=== PATIENT | male | born 1990 | race Caucasian/White ===

== ENCOUNTER 2016-05-26 15:57 | Emergency (ER) | payer SELFPAY ==
[2016-05-26] MEDS ORDERED: HYDROcod/ACETAM 5/325 MG TABLET PO STA (16:09)
[2016-05-26] MEDS ORDERED: TETANUS/DIPHTHERIA/PERTUSSIS 0.5 ML SYRINGE IM ONE ×2 (16:09→16:12)
[2016-05-26] MEDS ORDERED: HYDROcod/ACETAM 5/325 MG TABLET ONE (16:11)
== END 2016-05-26 17:10 | disposition home or self-care (01) ==
DX: S06.0X1A Concussion with loss of consciousness of 30 minutes or less, initial encounter (principal); M54.2 Cervicalgia; M25.551 Pain in right hip; S00.03XA Contusion of scalp, initial encounter; S00.01XA Abrasion of scalp, initial encounter; S60.512A Abrasion of left hand, initial encounter; V28.2XXA Unspecified motorcycle rider injured in noncollision transport accident in nontraffic accident, initial encounter; Z23 Encounter for immunization; R03.0 Elevated blood-pressure reading, without diagnosis of hypertension
CPT/HCPCS: 70450; 72125; 90471; 90715; 99283; 99284; A9270

== ENCOUNTER 2018-01-25 12:20 | Emergency (ER) | payer OTHER ==
--- NOTE | 2018-01-25 12:34 | ED Physician Documentation ---
PD HPI HEENT - Stated complaint Stated Complaint: THROAT PX - History obtained from History obtained from: Patient, Other (translation pad) - History of Present Illness Timing - onset: How many days ago (3) Timing - duration: Days (3) Timing - details: Gradual onset, Still present (much worse today) Location: Throat Worsens: Swalllowing, Position (lying down) Associated symptoms: Fever, Swollen nodes. No: Congestion, Rhinorrhea, Unable to swallow, Facial swelling Similar symptoms before: Has not had sx before Recently seen: Not recently seen Review of Systems Constitutional: reports: Fever, Myalgias Nose: denies: Rhinorrhea / runny nose, Congestion Throat: reports: Sore throat, Swollen tonsils. denies: Dental pain / toothache, Oral lesions / sores Respiratory: denies: Cough GI: denies: Nausea, Vomiting, Diarrhea Skin: denies: Rash, Lesions PD PAST MEDICAL HISTORY - Past Medical History Past Medical History: No - Past Surgical History Past Surgical History: No - Present Medications Home Medications: Ambulatory Orders Medication Instructions Recorded Confirmed HYDROcod/ACETAM 5/325 [[place] 5/325] 1 - 2 ea PO Q6H PRN #10 tablet 05/26/16 Ibuprofen [Motrin] 800 mg PO Q8H PRN #14 tablet 05/26/16 Cephalexin [Keflex] 500 mg PO QID #24 capsule 01/25/18 Dexamethasone [Decadron] 4 mg PO DAILY #5 tablet 01/25/18 HYDROcod/ACETAM 5/325 [[place] 5/325] 1 tab PO Q6H PRN #15 tablet 01/25/18 Ibuprofen [Motrin] 600 mg PO TID #20 tab 01/25/18 - Allergies Allergies/Adverse Reactions: Allergies Allergy/AdvReac Type Severity Reaction Status Date / Time No Known Drug Allergies Allergy Verified 05/26/16 16:07 - Social History Does the pt smoke?: No Smoking Status: Never smoker Does the pt drink ETOH?: Yes - Immunizations Immunizations are current?: No PD ED PE NORMAL - Vitals Vital signs reviewed: Yes - General General: Alert and oriented X 3, Well developed/nourished, Other (appears in pain with swallowing, but has normal voice and breathing. ) - HEENT HEENT: Ears normal, Moist mucous membranes. No: Pharynx benign (right peritonsillar edema with redness and pushing out the tonsil some. ) - Neck Neck: Supple, no meningeal sign, Other (right anterior adenopathy. ) - Cardiac Cardiac: RRR, No murmur - Respiratory Respiratory: Clear bilaterally - Abdomen Abdomen: Soft, Non tender - Derm Derm: Normal color, Warm and dry, No rash Results - Vitals Vitals: Vital Signs - 24 hr 01/25/18 01/25/18 12:46 13:47 Temperature 37.2 C 37.7 C H Heart Rate 88 87 Respiratory 18 18 Rate Blood Pressure 131/92 H 129/74 O2 Saturation 96 97 Oxygen O2 Source Room air - Labs Labs: Laboratory Tests 01/25/18 12:45 Group A Strep Rapid Negative PD MEDICAL DECISION MAKING - ED course Complexity details: reviewed results, considered differential (exam c/w peritonsillar abscess, but not too large at this point and it does not distort his voice. Can treat with abx and steroids at this point. ), d/w patient - Sepsis Event Vital Signs: Vital Signs - 24 hr 01/25/18 01/25/18 12:46 13:47 Temperature 37.2 C 37.7 C H Heart Rate 88 87 Respiratory 18 18 Rate Blood Pressure 131/92 H 129/74 O2 Saturation 96 97 Oxygen O2 Source Room air Departure - Departure Disposition: 01 Home, Self Care Clinical Impression: Peritonsillar abscess Condition: Stable Record reviewed to determine appropriate education?: Yes Instructions: ED Peritonsillar Infec Abx No I andD Prescriptions: Cephalexin [Keflex] 500 mg PO QID #24 capsule Dexamethasone [Decadron] 4 mg PO DAILY #5 tablet HYDROcod/ACETAM 5/325 [[place] 5/325] 1 tab PO Q6H PRN #15 tablet PRN Reason: Pain Ibuprofen [Motrin] 600 mg PO TID #20 tab Print Language: Kazakh Comments: This is an infection around the tonsil causing swelling in the area. It does n ot look big enough to need incision and drainage. It should improve quite a bit in the next day or 2. Return if not improved in the next day or if it is worsening. Use cephalexin antibiotic and Decadron steroid as directed for swelling and infection. Use ibuprofen for pain and add Tylenol or hydrocodone as needed for worse pain. Drink lots of fluids. Food as tolerated. Discharge Date/Time: 01/25/18 13:47
[2018-01-25] MEDS ORDERED: cefTRIAXone 1 GM VIAL IM STA (12:52)
[2018-01-25] MEDS ORDERED: LIDOCAINE 1% 2 ML VIAL SUBQ ONE (12:52)
[2018-01-25] MEDS ORDERED: ACETAMINOPHEN 325 MG TABLET PO STA (12:52)
[2018-01-25] MEDS ORDERED: DEXAMETHASONE 10 MG/ML VIAL PO STA (12:52)
[2018-01-25] MEDS ORDERED: KETOROLAC 30 MG/ML VIAL IM STA (12:52)
[2018-01-25 13:48] VITALS: BP 129/74
== END 2018-01-25 13:47 | disposition home or self-care (01) ==
LOC: ED 12:20
DX: J36 Peritonsillar abscess (principal)
CPT/HCPCS: 87070; 87430; 96372; 99283; A9270

== ENCOUNTER 2018-01-27 18:54 | Emergency (ER) | payer OTHER ==
--- NOTE | 2018-01-27 20:51 | ED Physician Documentation ---
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 No: Fever, Unable to swallow (but very painful) Recently seen: Emergency Dept (2 days ago with peritonsillar cellulitis.) Review of Systems Constitutional: denies: Fever, Myalgias Nose: denies: Rhinorrhea / runny nose, Congestion Throat: reports: Sore throat, Swollen tonsils Cardiac: denies: Chest pain / pressure, Palpitations Respiratory: denies: Dyspnea, Cough GI: denies: Vomiting, Diarrhea Skin: denies: Rash PD PAST MEDICAL HISTORY - Past Medical History Past Medical History: No - Past Surgical History Past Surgical History: No - Present Medications Home Medications: Ambulatory Orders Medication Instructions Recorded Confirmed HYDROcod/ACETAM 5/325 [[place] 5/325] 1 - 2 ea PO Q6H PRN #10 tablet 05/26/16 Ibuprofen [Motrin] 800 mg PO Q8H PRN #14 tablet 05/26/16 Cephalexin [Keflex] 500 mg PO QID #24 capsule 01/25/18 Dexamethasone [Decadron] 4 mg PO DAILY #5 tablet 01/25/18 HYDROcod/ACETAM 5/325 [[place] 5/325] 1 tab PO Q6H PRN #15 tablet 01/25/18 Ibuprofen [Motrin] 600 mg PO TID #20 tab 01/25/18 - Allergies Allergies/Adverse Reactions: Allergies Allergy/AdvReac Type Severity Reaction Status Date / Time No Known Drug Allergies Allergy Verified 05/26/16 16:07 - Social History Does the pt smoke?: No Smoking Status: Never smoker Does the pt drink ETOH?: Yes Does the pt have substance abuse?: No - Immunizations Immunizations are current?: No PD ED PE NORMAL - Vitals Vital signs reviewed: Yes - General General: Alert and oriented X 3, Well developed/nourished, Other (appears uncomfortable but able to talk without garbling. throat with appearance similar to 2 days ago, with some right peritonsillar fullness and redness but not bulging nor apparant fluctuance. ) - HEENT HEENT: Ears normal. No: Pharynx benign - Neck Neck: Supple, no meningeal sign, Other (anterior adenopathy) - Cardiac Cardiac: RRR, No murmur - Respiratory Respiratory: Clear bilaterally - Abdomen Abdomen: Soft, Non tender - Derm Derm: Normal color, Warm and dry - Neuro Neuro: Alert and oriented X 3, No motor deficit, Normal speech Results - Vitals Vitals: Vital Signs - 24 hr 01/27/18 01/27/18 18:59 22:13 Temperature 36.6 C 36.8 C Heart Rate 79 70 Respiratory 18 20 Rate Blood Pressure 145/74 H 140/70 H O2 Saturation 97 100 Oxygen O2 Source Room air PD MEDICAL DECISION MAKING - ED course Complexity details: reviewed old records, considered differential (findings similar to 2 days ago, still without obvious fluctuant area and he is able to talk okay. Given doses IV abx and given referral number for ENT. ), d/w patient - Sepsis Event Vital Signs: Vital Signs - 24 hr 01/27/18 01/27/18 18:59 22:13 Temperature 36.6 C 36.8 C Heart Rate 79 70 Respiratory 18 20 Rate Blood Pressure 145/74 H 140/70 H O2 Saturation 97 100 Oxygen O2 Source Room air Departure - Departure Disposition: 01 Home, Self Care Clinical Impression: Peritonsillar abscess Condition: Stable Record reviewed to determine appropriate education?: Yes Instructions: ED Peritonsillar Infec Abx No I andD Follow-Up: [facility] [Provider Group] Print Language: Italian Comments: Continue the prior antibiotic and steroid medications. We will see if the added IV antibiotics tonight improve you well. 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 Call the ENT office for an appointment and see if they be able to get you in. Return sooner if worsening. Forms: Activity restrictions Discharge Date/Time: 01/27/18 23:42
[2018-01-27] MEDS ORDERED: KETOROLAC 15 MG/ML VIAL IVP STA (21:02)
[2018-01-27] MEDS ORDERED: VANCOMYCIN INJ 1 GM in SODIUM CHLORIDE 0.9% 500 ML IV STA (21:02)
[2018-01-27] MEDS ORDERED: DEXAMETHASONE 10 MG/ML VIAL IVP STA (21:02)
[2018-01-27] MEDS ORDERED: cefTRIAXone 1 GM VIAL IVP STA (21:02)
[2018-01-27 22:14] VITALS: BP 140/70
== END 2018-01-27 23:42 | disposition home or self-care (01) ==
LOC: ED 18:54
DX: J36 Peritonsillar abscess (principal)
CPT/HCPCS: 96365; 96366; 96375; 99282; 99283; J3370